=== PATIENT | female | born 1990 | race Caucasian/White ===

== ENCOUNTER 2016-09-08 12:15 | Emergency (ER) | payer OTHER ==
[~2016-09-08 12:15] MED LIST: AMOX500T PO; AUGM875T27 PO; IBUP800T23 PO; PERI0.126 SSP; VICO5TAB16 PO
[2016-09-08] MEDS ORDERED: NS 1,000 ML IV SCH (13:30)
[2016-09-08 13:52] LABS: BASO % 0.6 % (0.0-1.0); EOS # 0.1 K/mm3 (0.0-0.50); EOS % 1.4 % (0.0-3.0); LARGE UNSTAINED CELL # 0.2 K/mm3 (0.0-0.4); LARGE UNSTAINED CELL % 2.5 % (0.0-4.0); LYMPH # 2.7 K/mm3 (1.5-6.5); LYMPH % 31.8 % (24.0-44.0); MEAN CORPUSCULAR HEMOGLOBIN 30.7 pg (27.0-33.0); MEAN CORPUSCULAR HGB CONC 33.9 g/dl (32.0-36.5); MEAN CORPUSCULAR VOLUME 90.8 fl (80.0-96.0); MONO # 0.4 K/mm3 (0.0-0.8); MONO % 4.6 % (0.0-5.0); NEUTROPHILS # 4.6 K/mm3 (1.8-7.7); NEUTROPHILS % 59.1 % (36.0-66.0); PLATELET COUNT, AUTOMATED 278 k/mm3 (150-450); RED CELL DISTRIBUTION WIDTH 13.5 % (11.5-14.5); WHITE BLOOD COUNT 7.8 K/mm3 (4.0-10.0)
[2016-09-08 14:02] LABS: CONTROL LINE HCG INT CTR LINE PRESENT
[2016-09-08 14:09] LABS: ALBUMIN 3.9 GM/DL (3.2-5.2); ALBUMIN/GLOBULIN RATIO 1.18 (1.00-1.93); ALKALINE PHOSPHATASE 56 U/L (45-117); ALT/SGPT 27 U/L (12-78); ANION GAP 7 MEQ/L (8-16); AST/SGOT 16 U/L (15-37); BILIRUBIN,DIRECT < 0.1 MG/DL (0.0-0.2); BILIRUBIN,TOTAL 0.2 MG/DL (0.2-1.0); BLOOD UREA NITROGEN 9 MG/DL (7-18); CALCIUM LEVEL 8.4 MG/DL (8.5-10.1); CARBON DIOXIDE LEVEL 28 MEQ/L (21-32); CHLORIDE LEVEL 106 MEQ/L (98-107); CREATININE FOR GFR 0.55 MG/DL (0.55-1.02); GLOMERULAR FILTRATION RATE > 60.0 (>60); GLUCOSE, FASTING 78 MG/DL (70-105); POTASSIUM SERUM 4.1 MEQ/L (3.5-5.1); SODIUM LEVEL 141 MEQ/L (136-145); TOTAL PROTEIN 7.2 GM/DL (6.4-8.2)
[2016-09-08] MEDS ORDERED: GASTROGRAFIN SOLUTION 30ML (Q9963) PO ONE (14:45)
[2016-09-08] MEDS ORDERED: GASTROGRAFIN SOLUTION 30ML PO ONE (15:15)
[2016-09-08 15:27] LABS: MICROSCOPIC INDICATED? MAN YES (NO)
[2016-09-08] MEDS ORDERED: ISOVUE-370 76% 100ML VIAL (Q9967) As Ordered ONE (15:32)
[2016-09-08 15:34] LABS: BACTERIA, URINE LARGE AMOUNT; HYALINE CAST, URINE NONE SEEN /lpf (0-1); MICROSCOPIC EXAM PERFORMED; SQUAMOUS EPITHELIAL CELL URINE SMALL AMOUNT /hpf (SMALL AMT)
--- NOTE | 2016-09-08 16:33 | REP ---
CT abdomen and pelvis with IV and oral contrast: Comparison is 08/10/2015. On the comparison study the patient has an definite additional diagnosis of ovarian cancer. The visualized lung [place] are unremarkable. The hepatic parenchyma is homogeneous and unremarkable and unchanged. The gallbladder, pancreas and spleen are normal size, unremarkable and unchanged. The adrenals, kidneys and abdominal aorta are unremarkable and unchanged. There is no retroperitoneal adenopathy. The bowel and mesentery are unremarkable. There is no ascites. There is no omental caking. Pelvis: The previous right adnexal mass is no longer present. There is a left adnexal 4.3 cm cyst in the left adnexal 2.3 centimeter cyst. There is no free fluid in the pelvis. The bladder is unremarkable. There is an IUD centrally placed in the uterus. The uterus is otherwise unremarkable. There is a trace of free fluid in the cul-de-sac. There is no pelvic adenopathy. The pelvic bowel loops are unremarkable. Impression: The previous right adnexal mass is no longer present. There is a 4.3 cm left adnexal cyst and there is a 2.3 cm left adnexal cyst. Trace of free fluid in the cul-de-sac. IUD centrally placed in the uterus. Otherwise, negative CT of the abdomen and pelvis. Signed by Domingo Perry MD 09/08/2016 04:24 P
[2016-09-08 16:56] VITALS: BP 121/58
[2016-09-08] MEDS ORDERED: CIPROFLOXACIN 500 MG TAB PO ONE (17:00)
[2016-09-08] MEDS ORDERED: CIPR500T89 PO (17:01)
== END 2016-09-08 17:19 | disposition home or self-care (01) ==
LOC: M ED 12:49
DX: N39.0 Urinary tract infection, site not specified (principal); E27.8 Other specified disorders of adrenal gland; N83.299 Other ovarian cyst, unspecified side; Z85.43 Personal history of malignant neoplasm of ovary; F17.200 Nicotine dependence, unspecified, uncomplicated; Z97.5 Presence of (intrauterine) contraceptive device
CPT/HCPCS: 74177; 80048; 80076; 81000; 83690; 84703; 85025; 87088; 87186; 99284; Q9963; Q9967

== ENCOUNTER → 2016-10-03 | Outpatient (CLI) | payer OTHER, SELFPAY ==
[~2016-10-03] MED LIST changes: -AUGM875T27 PO; +AUGM875T28 PO; +CIPR-249 PO; +IBUP1TAB7 PO; -IBUP800T23 PO
--- NOTE | 2016-10-04 08:41 | REP ---
PELVIC SONOGRAPHY: HISTORY: History of ovarian carcinoma. Cyst seen on CT scan. Comparison CT study September 08, 2016. Comparison sonography October 27, 2015. SONOGRAPHIC FINDINGS: Transabdominal and transvaginal scanning are performed. Uterine dimensions are mildly enlarged at 8.9 x 5.0 x 6.7 cm. Endometrial echo is 0.2 cm thick. An IUD is seen in place as on the CT study. No focal uterine mass is seen. The right ovary is surgically absent. The left ovary dimensions are 5.6 x 3.5 x 6.8 cm. These dimensions include two left ovarian cysts. There is a simple cyst in the left ovary measuring 2.9 x 2.8 x 3.2 cm. A complex cyst is seen in the left ovary measuring 3.3 x 2.6 x 3.5 cm as well. Ovarian Doppler flow appears to be normal. IMPRESSION: One complex and one simple cysts seen in the left ovary as above. Nonspecific. Consider followup. Signed by Siva Jarquin MD 10/04/2016 11:33 A
== END ==
LOC: M RAD 17:58
PROVIDERS: ATTEND Nurse Practitioner Women's Health
DX: R10.32 Left lower quadrant pain (principal); N95.2 Postmenopausal atrophic vaginitis; Z85.43 Personal history of malignant neoplasm of ovary

== ENCOUNTER → 2016-10-18 | Outpatient (REF) | payer OTHER, SELFPAY | LOC: M LAB REF 16:23 | PROVIDERS: ATTEND Obstetrics & Gynecology | DX: Z20.2 Contact with and (suspected) exposure to infections with a predominantly sexual mode of transmission (principal) ==